=== PATIENT | female | born 1980 | race Two or more races ===

== ENCOUNTER 2022-01-28 16:09 | Emergency (ER) | payer OTHER ==
[~2022-01-28] VITALS: Ht 167.6 cm; Wt 70.3 kg
== END 2022-01-28 18:47 | disposition home or self-care (01) ==
LOC: ER 16:09
DX: S40.011A Contusion of right shoulder, initial encounter (principal); X58.XXXA Exposure to other specified factors, initial encounter; Y93.89 Activity, other specified; Y92.488 Other paved roadways as the place of occurrence of the external cause; Y99.8 Other external cause status; M25.511 Pain in right shoulder; M54.2 Cervicalgia